=== PATIENT | female | born 1950 | race Two or more races ===

== ENCOUNTER 2017-07-10 21:58 | Emergency (ER) | payer MEDICARE, OTHER ==
[~2017-07-10] VITALS: Ht 165.1 cm; Wt 72.6 kg
[2017-07-10 22:13] VITALS: BP 144/82
[2017-07-10] MEDS ORDERED: Sodium Chloride 500ML 500 ML IV ONE (22:15)
[2017-07-10 22:44] LABS: BASOPHILS % (AUTO) 0.9 % (0.0-2.0); EOSINOPHILS % (AUTO) 2.1 % (0.0-3.0); LYMPHOCYTES % (AUTO) 39.1 % (20.0-45.0); MEAN CORPUSCULAR HEMOGLOBIN 25.3 PG (27.0-31.0); MEAN CORPUSCULAR HGB CONC 29.3 G/DL (32.0-36.0); MEAN CORPUSCULAR VOLUME 87 FL (80-99); MEAN PLATELET VOLUME 7.9 FL (6.5-10.1); MONOCYTES % (AUTO) 10.1 % (1.0-10.0); NEUTROPHILS % (AUTO) 47.9 % (45.0-75.0); PLATELET COUNT 243 K/UL (150-450); RED BLOOD COUNT 5.34 M/UL (4.20-5.40); RED CELL DISTRIBUTION WIDTH 12.9 % (11.6-14.8); WHITE BLOOD COUNT 7.5 K/UL (4.8-10.8)
--- NOTE | 2017-07-10 22:48 | Emergency Room Report ---
History of Present Illness General Chief Complaint: Syncope Source: Patient, EMS Present Illness HPI 67-year-old female presents to ED status post syncopal episode. Patient brought in by EMS. Daughter at bedside states that patient was feeling weak and dizzy all day. Was sitting on the ground tonight when she "passed out". No reported head trauma. Upon arrival patient is she feels better. Per EMS EKG shows A. fib. Patient denies any chest pain or shortness of breath. Denies any fevers or chills. Patient states she feels weak. No other aggravating relieving factors. Denies any other system symptoms Allergies: Coded Allergies: No Known Allergies (Unverified , 07/10/17) Patient History Past Medical History: HTN, AFib Past Surgical History: none Pertinent Family History: none Social History: Denies: smoking, alcohol use, drug use Last Menstrual Period: NA Now: No Immunizations: UTD Reviewed Nursing Documentation: PMH: Agreed, PSxH: Agreed Nursing Documentation-PMH Hx Hypertension: Yes Review of Systems All Other Systems: negative except mentioned in HPI Physical Exam Vital Signs Date Time Temp Pulse Resp B/P (MAP) Pulse Ox O2 Delivery O2 Flow Rate FiO2 07/10/17 21:52 98.1 71 18 131/107 98 Room Air Sp02 EP Interpretation: reviewed, normal General Appearance: no apparent distress, alert, GCS 15, non-toxic Head: normocephalic, atraumatic Eyes: bilateral eye normal inspection, bilateral eye PERRL ENT: hearing grossly normal, normal pharynx, no angioedema, normal voice Neck: full range of motion, supple/symm/no masses Respiratory: chest non-tender, lungs clear, normal breath sounds, speaking full sentences Cardiovascular #1: regular rate, rhythm, no edema Cardiovascular #2: 2+ carotid (R), 2+ carotid (L), 2+ radial (R), 2+ radial (L) , 2+ dorsalis pedis (R), 2+ dorsalis pedis (L) Gastrointestinal: normal bowel sounds, non tender, soft, non-distended, no guarding, no rebound Rectal: deferred Genitourinary: normal inspection, no CVA tenderness Musculoskeletal: back normal, gait/station normal, normal range of motion, non- tender Neurologic: alert, oriented x3, responsive, motor strength/tone normal, sensory intact, speech normal Psychiatric: judgement/insight normal, memory normal, mood/affect normal, no suicidal/homicidal ideation Reflexes: 3+ bicep (R), 3+ bicep (L), 3+ tricep (R), 3+ tricep (L), 3+ knee (R) , 3+ knee (L) Skin: normal color, no rash, warm/dry, well hydrated Lymphatic: no adenopathy Medical Decision Making Diagnostic Impression: Primary Impression: Syncope Qualified Codes: R55 - Syncope and collapse Additional Impression: Atrial fibrillation Qualified Codes: I48.91 - Unspecified atrial fibrillation ER Course Hospital Course 67-year-old F presents ED s/p syncopal episode. Differential diagnoses include: [place]/unstable angina, arrythmia, dehydration, CVA/ TIA Clinical course Patient placed on stretcher. 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 After initial history and physical I ordered labs, EKG, chest x-ray, IVFs, CT Brain labs reviewed- no leukocytosis, hemoglobin/hematocrit ok, electrolytes okay, troponins negative, BNP > 1000 EKG-afib with no acute ischemic changes interpreted by me Chest x-ray- cardiomegaly CT brain-unremarkable Because of insurance patient will be transferred I. I feel this is a highly complex case requiring extensive working including EKG/Rhythm strip, Xray/CT/US, Blood/urine lab work, repeat exams while in ED, and administration of strong opiates/narcotics for pain control, admission to hospital or close patient follow up. Diagnosis - syncope, atrial fibrillation Transferred in serious condition Labs Test 07/10/17 22:30 07/10/17 23:44 White Blood Count 7.5 K/UL (4.8-10.8) Red Blood Count 5.34 M/UL (4.20-5.40) Hemoglobin 13.5 G/DL (12.0-16.0) Hematocrit 46.2 % (37.0-47.0) Mean Corpuscular Volume 87 FL (80-99) Mean Corpuscular Hemoglobin 25.3 PG (27.0-31.0) Mean Corpuscular Hemoglobin Concent 29.3 G/DL (32.0-36.0) Red Cell Distribution Width 12.9 % (11.6-14.8) Platelet Count 243 K/UL (150-450) Mean Platelet Volume 7.9 FL (6.5-10.1) Neutrophils (%) (Auto) 47.9 % (45.0-75.0) Lymphocytes (%) (Auto) 39.1 % (20.0-45.0) Monocytes (%) (Auto) 10.1 % (1.0-10.0) Eosinophils (%) (Auto) 2.1 % (0.0-3.0) Basophils (%) (Auto) 0.9 % (0.0-2.0) Sodium Level 143 MMOL/L (136-145) Potassium Level 4.0 MMOL/L (3.5-5.1) Chloride Level 105 MMOL/L (98-107) Carbon Dioxide Level 27 MMOL/L (21-32) Anion Gap 11 mmol/L (5-15) Blood Urea Nitrogen 16 mg/dL (7-18) Creatinine 0.8 MG/DL (0.55-1.30) Estimat Glomerular Filtration Rate > 60 mL/min (>60) Glucose Level 102 MG/DL (74-106) Calcium Level 9.0 MG/DL (8.5-10.1) Total Bilirubin 0.2 MG/DL (0.2-1.0) Aspartate Amino Transf (AST/SGOT) 14 U/L (15-37) Alanine Aminotransferase (ALT/SGPT) 26 U/L (12-78) Alkaline Phosphatase 102 U/L (46-116) Total Creatine Kinase 46 U/L (26-308) Creatine Kinase MB < 0.5 NG/ML (0.0-3.6) Creatine Kinase MB Relative Index 1.0 Troponin I 0.000 ng/mL (0.000-0.056) Pro-B-Type Natriuretic Peptide 1006 pg/mL (0-125) Total Protein 7.8 G/DL (6.4-8.2) Albumin 3.7 G/DL (3.4-5.0) Globulin 4.1 g/dL Albumin/Globulin Ratio 0.9 (1.0-2.7) Urine Color Pale yellow Urine Appearance Clear Urine pH 7 (4.5-8.0) Urine Specific [place] 1.005 (1.005-1.035) Urine Protein Negative (NEGATIVE) Urine Glucose (UA) Negative (NEGATIVE) Urine Ketones Negative (NEGATIVE) Urine Occult Blood 1+ (NEGATIVE) Urine Nitrite Negative (NEGATIVE) Urine Bilirubin Negative (NEGATIVE) Urine Urobilinogen Normal MG/DL (0.0-1.0) Urine Leukocyte Esterase 1+ (NEGATIVE) Urine RBC 0-2 /HPF (0 - 2) Urine WBC 2-4 /HPF (0 - 2) Urine Squamous Epithelial Cells Few /LPF (NONE/OCC) Urine Bacteria None /HPF (NONE) EKG Diagnostic Results Rate: normal Rhythm: other - afib ST Segments: no acute changes ASA given to the pt in ED: No Rhythm Strip Diag. Results EP Interpretation: yes Rhythm: no PVC's, no ectopy Chest X-Ray Diagnostic Results Chest X-Ray Diagnostic Results : Chest X-Ray Ordered: Yes # of Views/Limited/Complete: 1 View Indication: Other - syncope EP Interpretation: Yes Interpretation: no consolidation, no pneumothorax, no acute cardiopulmonary disease, other - cardiomegaly. effusion Impression: Other - chf Electronically Signed by: Electronically signed by Bill Almaraz MD CT/MRI/US Diagnostic Results CT/MRI/US Diagnostic Results : Imaging Test Ordered: CT head Impression no acute process Last Vital Signs Date Time Temp Pulse Resp B/P (MAP) Pulse Ox O2 Delivery O2 Flow Rate FiO2 07/10/17 22:13 72 13 144/82 99 Room Air 07/10/17 21:52 98.1 Status: improved Disposition: [facility] Condition: Serious BILL ALMARAZ M.D. Jul 10, 2017 22:48
[2017-07-10 23:06] VITALS: BP 133/79
[2017-07-10] MEDS ORDERED: DiphenhydrAMINE 50mg/ml Inj IVP ONE (23:30)
[2017-07-10] MEDS ORDERED: Acetaminophen 500mg (ES) tab ORAL ONE (23:30)
[2017-07-10] MEDS ORDERED: Metoclopramide 10mg/2ml Inj IVP ONE (23:30)
[2017-07-10 23:39] LABS: ANION GAP 11 mmol/L (5-15); CARBON DIOXIDE 27 MMOL/L (21-32); CHLORIDE 105 MMOL/L (98-107); CREATININE 0.8 MG/DL (0.55-1.30); GLOMERULAR FILTRATION RATE > 60 mL/min (>60); SODIUM 143 MMOL/L (136-145)
[2017-07-10 23:52] LABS: ALANINE AMINOTRANSFERASE 26 U/L (12-78); ALBUMIN/GLOBULIN RATIO 0.9 (1.0-2.7); ASPARTATE AMINO TRANSFERASE 14 U/L (15-37); CKMB < 0.5 NG/ML (0.0-3.6); TOTAL PROTEIN 7.8 G/DL (6.4-8.2)
[2017-07-10] MEDS ORDERED: DIGOXIN125 MCG ORAL (23:52)
[2017-07-10] MEDS ORDERED: OMEPRAZOLE20 M2 ORAL (23:52)
[2017-07-10] MEDS ORDERED: METOPROLOL TAR100 M1 ORAL (23:52)
[2017-07-10] MEDS ORDERED: LIPITOR80 MG ORAL (23:52)
[2017-07-10] MEDS ORDERED: XARELTO20 MG ORAL (23:52)
[2017-07-10 23:53] LABS: APPEARANCE,URINE CLEAR; KETONES,URINE NEGATIVE (NEGATIVE); NITRITE,URINE NEGATIVE (NEGATIVE); PH,URINE 7 (4.5-8.0); PROTEIN,URINE NEGATIVE (NEGATIVE); UROBILINOGEN,URINE NORMAL MG/DL (0.0-1.0)
[2017-07-11 00:01] LABS: LEUKOCYTE ESTERASE ,URINE 1+ (NEGATIVE)
[2017-07-11 00:02] LABS: RBC,URINE 0-2 /HPF (0 - 2); SQUAMOUS EPITHELIAL CELL,UR FEW /LPF (NONE/OCC)
[2017-07-11 02:01] VITALS: BP 120/57
[2017-07-11 02:33] VITALS: BP 112/70
[2017-07-11 03:21] VITALS: BP 130/75
--- NOTE | 2017-07-11 09:32 | Diagnostic Imaging Report ---
Indications: Syncope Technique: Spiral acquisitions obtained through the brain. Angled axial and coronal 5 x 5 mm slices were reconstructed. Total dose length product 1290 mGycm. CTDI vol(s) 70 mGy. Dose reduction achieved using automated exposure control Comparison: None Findings: There is minimal age-related enlargement of ventricles and extra-axial CSF spaces. No acute intracranial hemorrhage or edema, mass effect, or midline shift. Normal issa-white differentiation. Minimal ethmoid sinus mucosal disease and small anterior ethmoid osteoma noted. This clear mastoids. Intact calvarium. Visualized orbits are unremarkable. Impression: Mild age-related changes Negative for acute intracranial bleed or mass effect Minimal sinus disease and small anterior ethmoid osteoma The CT scanner at [facility] is accredited by the [employer] and the scans are performed using protocols designed to limit radiation exposure to as low as reasonably achievable to attain images of sufficient resolution adequate for diagnostic evaluation.
--- NOTE | 2017-07-11 10:39 | Diagnostic Imaging Report ---
Indication: Shortness of breath Technique: One view of the chest Comparison: none Findings: Lungs are equivocally mildly hyperinflated. The heart is mildly enlarged. Lungs and pleural spaces are clear. Impression: Mild cardio mainly No acute process Possible mild hyperinflation, could indicate COPD changes, versus vigorous inspiratory effort This agrees with the preliminary interpretation provided by the emergency room physician
== END 2017-07-11 03:30 | disposition short-term general hospital (02) ==
LOC: EDBD 21:58 → EMR 23:25
DX: I48.91 Unspecified atrial fibrillation (principal); R55 Syncope and collapse; I10 Essential (primary) hypertension
CPT/HCPCS: 36415; 70450; 71010; 80053; 81003; 82550; 82553; 83880; 84484; 85025; 93005; 96361; 96374; 96375; 99284; J1200; J2765; J7040